=== PATIENT | female | born 1985 | race Hispanic/Latino ===

== ENCOUNTER → 2024-04-06 17:44 | Outpatient (REF) | payer OTHER, SELFPAY | LOC: HWWDC 17:44 | PROVIDERS: ATTENDING PHYSICIAN Family Medicine | DX: Z12.31 Encounter for screening mammogram for malignant neoplasm of breast (principal) | CPT/HCPCS: 77063; 77067 ==

== ENCOUNTER → 2025-08-10 14:21 | Outpatient (REF) | payer OTHER, SELFPAY | LOC: HWRAD 14:21 | PROVIDERS: ATTENDING PHYSICIAN Podiatrist Foot & Ankle Surgery; FAMILY PHYSICIAN Family Medicine | DX: M72.2 Plantar fascial fibromatosis (principal); Z01.818 Encounter for other preprocedural examination | CPT/HCPCS: 71046 ==